=== PATIENT | male | born 1970 ===

== ENCOUNTER 2016-11-12 23:22 | Emergency (ER) | payer OTHER ==
[2016-11-12] MEDS ORDERED: LORazepam 2 MG/1 ML VIAL IVP ONE (23:28)
[2016-11-12] MEDS ORDERED: Sodium Chloride 0.9% 1,000 ML PRIMARY IV ONE (23:28)
[2016-11-12] MEDS ORDERED: ONDANSETRON 4 MG/2 ML VIAL IVP ONE (23:28)
[2016-11-12 23:32] LABS: BASOPHILS # (AUTO) 0.05 10*3/UL; BASOPHILS % (AUTO) 0.4 % (0-1); EOSINOPHILS % (AUTO) 0.2 % (0-8); HEMATOCRIT 47.7 % (42.0-52.0); HEMOGLOBIN 16.7 g/dL (14.0-18.0); IMM GRAN % (AUTO) 0.2 % (0-5); IMM GRAN# (AUTO) 0.03 10*3/UL; LYMPHOCYTES % (AUTO) 8.3 % (10-50); MEAN CORPUSCULAR HEMOGLOBIN 31.5 PG (27-31); MEAN PLATELET VOLUME 10.5 FL (7.4-12.2); MONOCYTES % (AUTO) 8.3 % (5-15); NEUTROPHILS # (AUTO) 9.98 10*3/UL; NEUTROPHILS % (AUTO) 82.6 % (50-80); PLATELET MORPHOLOGY COMMENT NORMAL MORPHOLOGY (NORM); RDW COEFFICIENT OF VARIATION 12.4 % (11.5-14.5); WHITE BLOOD COUNT 12.08 10^3/uL (4.8-10.8)
--- NOTE | 2016-11-12 23:35 | PDOC ---
Altered Mental Status HPI - General Chief Complaint: Altered Mental Status Stated Complaint: Mental Status Changes Date Seen by Provider: 11/12/16 Time Seen by Provider: 23:30 Source: POSITIVE: Patient, Police, EMS Exam Limitations: POSITIVE: No limitations Nurse's Notes Reviewed & Considered: Yes - History of Present Illness Initial Comments: Patient is brought in via EMS with altered status. Patient was found by the Police Department as he was walking down the middle of the street to the hospital because he was having chest pain and was afraid he was having a heart attack. Police arrived and called for EMS. They found the patient to be altered, very anxious, and confused. 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 Further information is unavailable because of the patient's confusion and altered mental status. Patient is very fearful, hypervigilant, and jumpy. Body Location Affected: REPORTS: Chest Timing: REPORTS: Abrupt Duration: Unknown Severity: Moderate Quality: REPORTS: "Pain" Character of AMS: REPORTS: Disoriented, Confused, Aggitated, Trouble Concentrating Context: REPORTS: Other (Patient with history of PTSD.) Patient Normals: REPORTS: Alert, Oriented x3 Associated Symptoms: REPORTS: Chest Pain Similar Symptoms Previously: No Recent Care Received: REPORTS: Denies Any Prior Injuries Related to Current Complaint?: No - Patient Home Medications Home Medications: Home Medications Metoprolol Tartrate 1 tab PO BID #180 tab 11/18/15 Sertraline HCl [Zoloft] 50 mg PO DAILY #90 tablet 11/18/15 Spironolactone [Aldactone] 1 tab PO DAILY #90 tab 11/18/15 Lorazepam 1 mg PO BID PRN #30 tablet 03/04/16 - Patient Allergies Allergies/Adverse Reactions: Allergies Allergy/AdvReac Type Severity Reaction Status Date / Time No Known Allergies Allergy Verified 11/13/16 03:18 Past Medical History - heen HEENT History: Denies History Cardiovascular History: Hypertension Additional Cardiovasular History: recent onset of HTN Respiratory History: Denies History Gastrointestinal History: Denies History Genitourinary History: Denies History Endocrine History: Denies History Musculoskeletal History: Denies History Prosthesis or Implant: No Neurological History: Denies History Additional Neurological History: recent onset of bouts of disorientation Blood Disorders: Denies History Psychiatric History: Depression, Anxiety Disorders History of Sexually Transmitted Diseases: No Cancer History: Denies History History of MDRO: No History of Other Communicable Diseases: No Alcohol Use: Occasionally Substance Use Type: None Previous Surgical History: Yes Type / Date of Surgery: vericocyle Anesthesia Reactions: No Malignant Hyperthermia: No Significant Family History: Other (please comment) Additional Family History: Father has Alzheimer's ROS - Limitations ROS Limitations: Clinical Condition, Mental Impairment (Further review of systems are unavailable because of the patient's altered mental status.) Altered Mental Physical Exam - General Appearance General Appearance: POSITIVE: Alert, Anxious, Moderate Distress - HEENT HEENT: POSITIVE: Head Inspection Nml, Eyes Inspection Nml, Ears Inspection Nml, Nose Inspection Nml, Oral/Dental Inspect. Nml, Pharynx Inspect. Nml, PERRL, EOMI - Pupil Size Pupil Size: 4 mm: Bilateral - Neuro/Psych Neurological: POSITIVE: Confusion Cranial Nerves: POSITIVE: Normal As Tested, No Evidence of Acute CVA Cerebellar: POSITIVE: Normal As Tested Peripheral Exam: POSITIVE: No Motor Deficits, No Sensory Deficits - Neck Neck: POSITIVE: Supple, Non Tender - Respiratory Respiratory: POSITIVE: No Respiratory Distress, Breath Sounds Normal - Cardiovascular CVS: POSITIVE: Regular Rate and Rhythm, Heart Sounds Normal - Abdomen Abdomen: Soft: (All Quadrants), Normal Bowel Sounds: (All Quadrants), Denies Tenderness: (All Quadrants) - Skin Skin: POSITIVE: Normal for Race, No Rash, Warm, Dry - Extremities Extremity: Non-Tender: (All Extremities), Normal ROM: (All Extremities), Normal Inspection: (All Extremities) Altered Mental Status - Results Reviewed By Me Xrays/CTs/US Reviewed: Yes Lab Results Reviewed: Yes Lab Results:: Laboratory Results 11/12/16 11/12/16 11/13/16 Range/Units 01:01 23:19 00:30 WBC 12.08 H (4.8-10.8) 10^3/uL RBC 5.30 (4.70-6.10) 10^6/uL Hgb 16.7 (14.0-18.0) g/dL Hct 47.7 (42.0-52.0) % MCV 90.0 (80-90) FL MCH 31.5 H (27-31) PG MCHC 35.0 (33-37) g/dL RDW Std Deviation 40.7 (39-50) fL RDW Coeff of Panfilo 12.4 (11.5-14.5) % Plt Count 317 (140-350) 10*3/uL MPV 10.5 (7.4-12.2) FL Immature Gran % (Auto) 0.2 (0-5) % Neut % (Auto) 82.6 H (50-80) % Lymph % (Auto) 8.3 L (10-50) % Stephenson % (Auto) 8.3 (5-15) % Eos % (Auto) 0.2 (0-8) % Baso % (Auto) 0.4 (0-1) % Immature Gran # (Auto) 0.03 10*3/UL Neut # (Auto) 9.98 10*3/UL Lymph # (Auto) 1.00 10*3/uL Stephenson # (Auto) 1.00 H (0.3-0.8) 10*3/UL Eos # (Auto) 0.02 10*3/UL Baso # (Auto) 0.05 10*3/UL WBC Morphology Comment Normal morphology (NORM) Plt Morphology Comment Normal morphology (NORM) RBC Morph Comment Normal morphology (NORM) Sodium 140 (135-145) meq/L Potassium 3.9 (3.8-5.2) meq/L Chloride 103 (98-112) meq/L Carbon Dioxide 21 L (23-33) meq/L Anion Gap 16 (5-20) BUN 14 (7-22) mg/dL Creatinine 0.9 (0.70-1.50) mg/dL Estimated GFR > 60 (>60 ml/min/1.73m(2)) BUN/Creatinine Ratio 15.55 (6-20) Glucose 106 (78-110) mg/dL Calculated Osmolality 290.0 (267-292) mOsm/kg Calcium 10.0 (8.7-10.7) mg/dL Magnesium 2.0 (1.6-2.4) mg/dL Total Bilirubin 0.9 (0.3-1.2) mg/dL AST 34 (21-57) IU/L ALT 55 (21-72) IU/L Alkaline Phosphatase 109 (38-126) IU/L Troponin I < 0.012 (< 0.040) ng/mL Total Protein 7.9 (6.1-8.0) g/dL Albumin 4.9 H (3.5-4.8) g/dL Globulin 3.0 (2.50-4.10) g/dL Albumin/Globulin Ratio 1.60 (1.3-2.0) mg/g TSH 1.58 (0.2700-4.2000) uIU/mL Free T4 2.12 H (0.93-1.71) ng/dL Ur Collection Type Clean catch urine Urine Color Yellow Urine Clarity Clear (CLEAR) Urine pH 5.5 (5.0-8.5) Ur Specific [place] >=1.030 (1.005-1.030) U Specif Grav (Refrac) 1.028 Urine Protein Trace (NEG) mg/dl Urine Glucose (UA) Negative (NEG) mg/dL Urine Ketones >=160 (NEG) Urine Occult Blood Negative (NEG) Urine Nitrate Negative (NEG) Urine Bilirubin Small (NEG) Urine Urobilinogen 0.2 (0.2) EU/dL Ur Leukocyte Esterase Negative (NEG) Ur Culture Indicated? Culture not set Urine Opiates Screen Negative (NEG) Ur Buprenorphine Negative (NEG) Ur Oxycodone Screen Negative (NEG) Urine Methadone Screen Negative (NEG) Ur Propoxyphene Screen Negative (NEG) Barbiturate Screen Negative (NEG) U Tricyclic Antidepress Negative (NEG) Phencyclidine Screen Negative (NEG) Amphetamines Screen Negative (NEG) U Methamphetamines Scrn Negative (NEG) Benzodiazepines Screen Negative (NEG) Cocaine Screen Negative (NEG) U Marijuana (THC) Screen Negative (NEG) Serum Alcohol < 10 (0-10) mg/dL 11/13/16 Range/Units 07:19 WBC (4.8-10.8) 10^3/uL RBC (4.70-6.10) 10^6/uL Hgb (14.0-18.0) g/dL Hct (42.0-52.0) % MCV (80-90) FL MCH (27-31) PG MCHC (33-37) g/dL RDW Std Deviation (39-50) fL RDW Coeff of Panfilo (11.5-14.5) % Plt Count (140-350) 10*3/uL MPV (7.4-12.2) FL Immature Gran % (Auto) (0-5) % Neut % (Auto) (50-80) % Lymph % (Auto) (10-50) % Stephenson % (Auto) (5-15) % Eos % (Auto) (0-8) % Baso % (Auto) (0-1) % Immature Gran # (Auto) 10*3/UL Neut # (Auto) 10*3/UL Lymph # (Auto) 10*3/uL Stephenson # (Auto) (0.3-0.8) 10*3/UL Eos # (Auto) 10*3/UL Baso # (Auto) 10*3/UL WBC Morphology Comment (NORM) Plt Morphology Comment (NORM) RBC Morph Comment (NORM) Sodium (135-145) meq/L Potassium (3.8-5.2) meq/L Chloride (98-112) meq/L Carbon Dioxide (23-33) meq/L Anion Gap (5-20) BUN (7-22) mg/dL Creatinine (0.70-1.50) mg/dL Estimated GFR (>60 ml/min/1.73m(2)) BUN/Creatinine Ratio (6-20) Glucose (78-110) mg/dL Calculated Osmolality (267-292) mOsm/kg Calcium (8.7-10.7) mg/dL Magnesium (1.6-2.4) mg/dL Total Bilirubin (0.3-1.2) mg/dL AST (21-57) IU/L ALT (21-72) IU/L Alkaline Phosphatase (38-126) IU/L Troponin I < 0.012 (< 0.040) ng/mL Total Protein (6.1-8.0) g/dL Albumin (3.5-4.8) g/dL Globulin (2.50-4.10) g/dL Albumin/Globulin Ratio (1.3-2.0) mg/g TSH (0.2700-4.2000) uIU/mL Free T4 (0.93-1.71) ng/dL Ur Collection Type Urine Color Urine Clarity (CLEAR) Urine pH (5.0-8.5) Ur Specific [place] (1.005-1.030) U Specif Grav (Refrac) Urine Protein (NEG) mg/dl Urine Glucose (UA) (NEG) mg/dL Urine Ketones (NEG) Urine Occult Blood (NEG) Urine Nitrate (NEG) Urine Bilirubin (NEG) Urine Urobilinogen (0.2) EU/dL Ur Leukocyte Esterase (NEG) Ur Culture Indicated? Urine Opiates Screen (NEG) Ur Buprenorphine (NEG) Ur Oxycodone Screen (NEG) Urine Methadone Screen (NEG) Ur Propoxyphene Screen (NEG) Barbiturate Screen (NEG) U Tricyclic Antidepress (NEG) Phencyclidine Screen (NEG) Amphetamines Screen (NEG) U Methamphetamines Scrn (NEG) Benzodiazepines Screen (NEG) Cocaine Screen (NEG) U Marijuana (THC) Screen (NEG) Serum Alcohol (0-10) mg/dL EKG Interpreted/Reviewed By Me:: Yes EKG Interpretation:: POSITIVE: Normal Sinus Rhythm - Patient's Progress Pain Medication Addressed: POSITIVE: Not Applicable Re-Examine Time:: 03:11 Status: POSITIVE: Improved MDM / ED Course: Patient was examined, an IV started, blood drawn and sent to the lab for studies , radiographic studies were obtained. [employer] was treated in did present and has evaluated the patient. Findings: CBC shows a slight elevation of his white count to just over 12, hemoglobin and hematocrit platelets are normal, compensated metabolic panel is unremarkable. Magnesium is normal. TSH is normal, free T4 is elevated over 2. Urine drug screen is negative for all substances tested. Alcohol is undetectable. CT scan of his head shows a 5 x 6 mm hypodensity in the central brainstem most likely artifactual as there is significant adjacent being hardening artifact. Assessment: PTSD with superimposed anxiety. Plan: Further evaluation by [facility]. Prior to transfer to [facility], they have requested his diastolic blood pressure be under 90. He has received oral clonidine, IV labetalol, and IV Ativan. The end of my shift has occurred, I am turning over care to [facility] ER physician Dr. Bird while awaiting improvement of the patient's blood pressure and transfer to [facility]. Patient Care Time - Estimated PCT Patient Care Time (In Minutes): 60 Vital Signs - Recent Vital Signs Vital Signs: Vital Signs (Last 8 hours) Pulse Resp BP Pulse Ox 11/13/16 03:00 103 H 16 158/114 95 - VS Reviewed Vital Signs Reviewed: Yes Discharge Clinical Impression: Anxiety, PTSD (post-traumatic stress disorder) Discharge Disposition: Transferred to Psychiatric Facility Condition: Stable Follow Up With: NONE,NONE [NON-STAFF] - Date Decision to Transfer to Another Facility: 11/13/16 Time Decision to Transfer to Another Facility: 07:30
--- NOTE | 2016-11-12 23:36 | EKG ---
[address] [address] Measurements Intervals [place] Rate: 113 P: 62 KS: 144 QRS: 76 QRSD: 82 T: 38 QT: 312 QTc: 379 Interpretive Statements SINUS TACHYCARDIA VOLTAGE CRITERIA FOR LVH ABNORMAL RHYTHM ECG Compared to ECG 09/24/2015 10:31:59 Sinus rhythm no longer present Electronically Signed On 11-13-16 17:27:33 MDT by Dmitry Carpenter [email or web address]
[2016-11-12 23:42] LABS: ASPARTATE AMINO TRANSFERASE 34 IU/L (21-57); BILIRUBIN,TOTAL 0.9 mg/dL (0.3-1.2); BLOOD UREA NITROGEN 14 mg/dL (7-22); BUN/CREATININE RATIO 15.55 (6-20); CHLORIDE 103 meq/L (98-112); CREATININE 0.9 mg/dL (0.70-1.50); EST GLOMERULAR FILTRATION > 60 (>60 ml/min/1.73m(2)); GLUCOSE 106 mg/dL (78-110); POTASSIUM 3.9 meq/L (3.8-5.2); SODIUM 140 meq/L (135-145); TOTAL PROTEIN 7.9 g/dL (6.1-8.0)
[2016-11-13 00:13] LABS: FREE T4 (FREE THYROXINE) 2.12 ng/dL (0.93-1.71)
[2016-11-13 00:30] LABS: BILIRUBIN,URINE SMALL (NEG); CLARITY,URINE CLEAR (CLEAR); GLUCOSE, URINE (UA) NEGATIVE (NEG); LEUKOCYTE ESTERASE ,URINE NEGATIVE (NEG); NITRATE,URINE NEGATIVE (NEG); OCCULT BLOOD,URINE NEGATIVE (NEG); PH,URINE 5.5 (5.0-8.5); PROTEIN,URINE TRACE mg/dl (NEG); UROBILINOGEN,URINE 0.2 EU/dL (0.2)
[2016-11-13 00:47] LABS: CANNABINOID SCREEN,URINE NEGATIVE (NEG); COCAINE SCREEN NEGATIVE (NEG); METHAMPHETAMINES SCREEN,URINE NEGATIVE (NEG); URINE SAMPLE TYPE CLEAN CATCH URINE; URINE SPECIFIC GRAVITY - MAN 1.028
--- NOTE | 2016-11-13 01:48 | DI ---
HISTORY: Altered mental status. Patient seems very lethargic. COMPARISON: None available. TECHNIQUE: Non-contrast CT brain. Overall image quality is satisfactory. FINDINGS: EXTRACRANIAL SOFT TISSUES- No significant soft tissue injury identified. BONE - Calvarium: No depressed skull fracture. Temporal mastoids: No effusion. Included paranasal sinuses: Well aerated, noting maxillary sinus mucosal thickening. Orbits: No acute abnormality. CSF SPACES - Ventricles: Normal. Subarachnoid spaces: Normal. BRAIN - A 5 x 6 mm hypodensity is noted at the central brain stem. This finding may be artifactual as there is significant adjacent beam hardening artifact from the temporal bones in this location (axial image 7). If patients symptoms persist, recommend dedicated MRI for further evaluation. Punctate right basal ganglia hypodensity, nonspecific finding. No additional abnormal parenchymal at tenuation. No acute intracranial bleed, large vessel territory infarct or midline shift. IMPRESSION: 1. Evidence of a 5 x 6 mm hypodensity noted at the central brain stem. This finding may be artifactua l as there is significant adjacent beam hardening artifact from the temporal bones in this location ( axial image 7). If patients symptoms persist, recommend dedicated MRI for further evaluation. 2. No acute intracranial bleed, large vessel territory infarct or midline shift. NOTIFICATION: The above findings were phoned to Arnold Larsen in the ER Department on 11/13/2016 at 04: 50 AM EST.
[2016-11-13 03:16] VITALS: TEMP 98.2
[2016-11-13 03:28] VITALS: RESP 16
[2016-11-13] MEDS ORDERED: CloNIDine Tab 0.1 MG TABLET PO ONE ×2 (07:09→07:46)
[2016-11-13] MEDS ORDERED: LABETALOL 20 MG/4 ML (5 MG/1 ML) SYRINGE IVP ONE (08:27)
[2016-11-13] MEDS ORDERED: LORazepam 2 MG/1 ML VIAL IVP ONE (09:08)
[2016-11-13] MEDS ORDERED: NORMAL SALINE 10 ML SYRINGE FLUSH IVP PRN (09:16)
--- NOTE | 2016-11-13 13:10 | PDOC ---
Altered Mental Status HPI - General Chief Complaint: Altered Mental Status Stated Complaint: Mental Status Changes Date Seen by Provider: 11/13/16 Time Seen by Provider: 09:00 Source: POSITIVE: Patient, RN/MD Exam Limitations: POSITIVE: No limitations Nurse's Notes Reviewed & Considered: Yes - History of Present Illness Initial Comments: The patient is a 46-year-old male who was brought to our emergency room by police officers and EMS at approximately midnight, 13 hours ago. A she was initially seen and evaluated by Dr. Cuellar, who was the emergency physician on duty at that time area and I assumed care of this patient at change of shift at 9 AM. Patient was reportedly noted by police officers to be walking down the middle of the street. He was very agitated, fearful and paranoid. He complained to the police that he was having some chest pain so the police called paramedics and is brought to the emergency room by ambulance. Dr. Cuellar , prior to 9 AM, did a CT scan of the head which was normal except for a hypolucent lesion in the brainstem, which, according to the radiologist, probably represents an artifact. CBC, CMP, toxicology screen blood alcohol and thyroid stimulating hormone were all normal. Electrocardiogram is normal and troponin was normal. [facility]anna consultation was requested who placed the patient on a 72 hour hold for mental health evaluation. Patient has been under a great deal of stress lately. 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 Patient states that his long-time girlfriend left him recently and as a result his home went [facility]. He states that he is about to lose his job at the [employer] due to "behavior issues" . Patient was observed in the emergency room and repeat troponin was negative. His chest pain resolved shortly after arrival to the emergency room. The counselor from [employer] has place the patient on a 72 hour hold. She contacted [facility], and they declined to accept the patient because the patient's blood pressure, diastolic, was 99. Dr. Cuellar administered some anti-hypertensives and at the time of this dictation his blood pressure is 124/72. Next the [facility] declined to accept the patient because of the reading on the CT scan of a hypodense lesion in the brainstem, which is probably an artifact. These films were telemetered to [facility] where the psychiatrist reviewd them and finally agreed to accept the patient in transfer. At the time of this dictation patient is completely medically stable. He is alert and oriented and asymptomatic. I believe the patient had a decompensation of his PTSD due to situational stressors which caused him to have extreme anxiety and paranoia. Again, he is medically stable. Body Location Affected: REPORTS: Other Timing: REPORTS: Gradual (As above) Duration: <24 hours Severity: Moderate Quality: REPORTS: Other (Patient initially complained of some chest pain; he checked out cardiologically and is asymptomatic at this time) Character of AMS: REPORTS: Confused, Other (Paranoid, agitated on arrival. This is resolved subsequently.) Context: DENIES: Snf Resident, Chronic Dementia, Depression, Found Unrespons by Staff, Found Unresp by Bystander, Found Unrespons by Family, Recent Alcohol Intake, Heavy Alcohol Intake, Drug Abuse, Drug Overdose, Trauma, Head Injury, Infection, Family Members Sick, Given D50 WEBSITE PROJECT MANAGER, Given Narcan WEBSITE PROJECT MANAGER, Good Response to Tx WEBSITE PROJECT MANAGER, Marginal Respon to Tx WEBSITE PROJECT MANAGER, No Response to Tx WEBSITE PROJECT MANAGER, Other FSBS WEBSITE PROJECT MANAGER (Result in comment): Yes (normal) New Medications (if yes, list): No Patient Normals: REPORTS: Alert, Oriented x3 Associated Symptoms: DENIES: Recent Illness, Fever, Chills, Chest Pain, Neck Pain, Back Pain, Difficulty Breathing, Abdominal Pain, Nausea, Vomiting, New Onset Weakness, Decreas. Ability to Stand, Decreased Ability to Walk, Multiple Falls, Off Balance, Fainting, Dizziness, Involuntary Movements, Seizure, Headache, Other Similar Symptoms Previously: Yes (history of agitation and PTSD) Recent Care Received: REPORTS: Denies Any Prior Injuries Related to Current Complaint?: No - Patient Home Medications Home Medications: Home Medications Metoprolol Tartrate 1 tab PO BID #180 tab 11/18/15 Sertraline HCl [Zoloft] 50 mg PO DAILY #90 tablet 11/18/15 Spironolactone [Aldactone] 1 tab PO DAILY #90 tab 11/18/15 Lorazepam 1 mg PO BID PRN #30 tablet 07/01/16 - Patient Allergies Allergies/Adverse Reactions: Allergies Allergy/AdvReac Type Severity Reaction Status Date / Time No Known Allergies Allergy Verified 11/13/16 03:18 Past Medical History - heen HEENT History: Denies History Cardiovascular History: Hypertension Additional Cardiovasular History: recent onset of HTN Respiratory History: Denies History Gastrointestinal History: Denies History Genitourinary History: Denies History Endocrine History: Denies History Musculoskeletal History: Denies History Prosthesis or Implant: No Neurological History: Denies History Additional Neurological History: recent onset of bouts of disorientation Blood Disorders: Denies History Psychiatric History: Depression, Anxiety Disorders History of Sexually Transmitted Diseases: No Cancer History: Denies History In Past Year Been Physically Harmed or Verbally Threatened: No History of MDRO: No History of Other Communicable Diseases: No Tobacco Use: Never Smoker Alcohol Use: Occasionally Substance Use Type: None Previous Surgical History: Yes Type / Date of Surgery: vericocyle Anesthesia Reactions: No Malignant Hyperthermia: No Significant Family History: Other (please comment) Additional Family History: Father has Alzheimer's Past Medical History Reviewed: Reviewed - No Changes ROS - Limitations ROS Limitations: No Limitations Constitution: REPORTS: Denies Symptoms Cardiovascular: REPORTS: Denies Cardiac Symptoms Respiratory: REPORTS: Denies Resp Symptoms Neurological: REPORTS: Denies Neuro Symptoms Gastrointestinal: REPORTS: Denies GI Symptoms Endocrine: REPORTS: Denies Symptoms Musculoskeletal: REPORTS: Denies MS Symptoms Genitourinary: REPORTS: Denies Symptoms Eyes: REPORTS: Denies Symptoms ENT: REPORTS: Denies Symptoms Skin: REPORTS: Denies Skin Symptoms Lympathic: REPORTS: Denies Lympathic Symptoms Immunologic: POSITIVE: Denies Symptoms Psychiatric: POSITIVE: Anxiety, Depression. NEGATIVE: Suicidal Thoughts, Homicidal Thoughts Altered Mental Physical Exam - General Appearance General Appearance: POSITIVE: Alert, Cooperative, No Acute Distress, No Evidence of Trauma - HEENT HEENT: POSITIVE: Head Inspection Nml, Eyes Inspection Nml, Ears Inspection Nml, Nose Inspection Nml, Oral/Dental Inspect. Nml, Pharynx Inspect. Nml, PERRL, EOMI - Pupil Size Pupil Size: 4 mm: Bilateral (PERRLA) - Neuro/Psych Neurological: POSITIVE: Denies Neuro Symptoms Cranial Nerves: POSITIVE: Normal As Tested, No Evidence of Acute CVA Peripheral Exam: POSITIVE: No Motor Deficits, No Sensory Deficits, Reflexes Normal - Neck Neck: POSITIVE: Supple, Non Tender - Respiratory Respiratory: POSITIVE: No Respiratory Distress, Breath Sounds Normal - Cardiovascular CVS: POSITIVE: Regular Rate and Rhythm, Heart Sounds Normal Peripheral Pulses: Radial (R): 2+, Radial (L): 2+ - Abdomen Abdomen: Soft: (All Quadrants), Normal Bowel Sounds: (All Quadrants), Denies Tenderness: (All Quadrants), No Splenomegaly: (All Quadrants), No Hepatomegaly: (All Quadrants), No Guarding: (All Quadrants), No Rebound: (All Quadrants), No Palpable Pulse: (All Quadrants), No Palpabale Mass: (All Quadrants), No Distention: (All Quadrants), No Rigidity: (All Quadrants) - Skin Skin: POSITIVE: Normal for Race, No Rash, Warm, Dry - Extremities Extremity: Non-Tender: (All Extremities), Normal ROM: (All Extremities), Normal Inspection: (All Extremities) Altered Mental Status - Results Reviewed By Me Xrays/CTs/US Reviewed: Yes Discussed with Radiologist: Yes (CT scan normal except for a small hypolucency in the brainstem thought to be most likely artifactual) Lab Results Reviewed: Yes Lab Results:: Laboratory Results 11/12/16 11/12/16 11/13/16 Range/Units 01:01 23:19 00:30 WBC 12.08 H (4.8-10.8) 10^3/uL RBC 5.30 (4.70-6.10) 10^6/uL Hgb 16.7 (14.0-18.0) g/dL Hct 47.7 (42.0-52.0) % MCV 90.0 (80-90) FL MCH 31.5 H (27-31) PG MCHC 35.0 (33-37) g/dL RDW Std Deviation 40.7 (39-50) fL RDW Coeff of Panfilo 12.4 (11.5-14.5) % Plt Count 317 (140-350) 10*3/uL MPV 10.5 (7.4-12.2) FL Immature Gran % (Auto) 0.2 (0-5) % Neut % (Auto) 82.6 H (50-80) % Lymph % (Auto) 8.3 L (10-50) % Anson % (Auto) 8.3 (5-15) % Eos % (Auto) 0.2 (0-8) % Baso % (Auto) 0.4 (0-1) % Immature Gran # (Auto) 0.03 10*3/UL Neut # (Auto) 9.98 10*3/UL Lymph # (Auto) 1.00 10*3/uL Anson # (Auto) 1.00 H (0.3-0.8) 10*3/UL Eos # (Auto) 0.02 10*3/UL Baso # (Auto) 0.05 10*3/UL WBC Morphology Comment Normal morphology (NORM) Plt Morphology Comment Normal morphology (NORM) RBC Morph Comment Normal morphology (NORM) Sodium 140 (135-145) meq/L Potassium 3.9 (3.8-5.2) meq/L Chloride 103 (98-112) meq/L Carbon Dioxide 21 L (23-33) meq/L Anion Gap 16 (5-20) BUN 14 (7-22) mg/dL Creatinine 0.9 (0.70-1.50) mg/dL Estimated GFR > 60 (>60 ml/min/1.73m(2)) BUN/Creatinine Ratio 15.55 (6-20) Glucose 106 (78-110) mg/dL Calculated Osmolality 290.0 (267-292) mOsm/kg Calcium 10.0 (8.7-10.7) mg/dL Magnesium 2.0 (1.6-2.4) mg/dL Total Bilirubin 0.9 (0.3-1.2) mg/dL AST 34 (21-57) IU/L ALT 55 (21-72) IU/L Alkaline Phosphatase 109 (38-126) IU/L Troponin I < 0.012 (< 0.040) ng/mL Total Protein 7.9 (6.1-8.0) g/dL Albumin 4.9 H (3.5-4.8) g/dL Globulin 3.0 (2.50-4.10) g/dL Albumin/Globulin Ratio 1.60 (1.3-2.0) mg/g TSH 1.58 (0.2700-4.2000) uIU/mL Free T4 2.12 H (0.93-1.71) ng/dL Ur Collection Type Clean catch urine Urine Color Yellow Urine Clarity Clear (CLEAR) Urine pH 5.5 (5.0-8.5) Ur Specific Eck[place] >=1.030 (1.005-1.030) U Specif Grav (Refrac) 1.028 Urine Protein Trace (NEG) mg/dl Urine Glucose (UA) Negative (NEG) mg/dL Urine Ketones >=160 (NEG) Urine Occult Blood Negative (NEG) Urine Nitrate Negative (NEG) Urine Bilirubin Small (NEG) Urine Urobilinogen 0.2 (0.2) EU/dL Ur Leukocyte Esterase Negative (NEG) Ur Culture Indicated? Culture not set Urine Opiates Screen Negative (NEG) Ur Buprenorphine Negative (NEG) Ur Oxycodone Screen Negative (NEG) Urine Methadone Screen Negative (NEG) Ur Propoxyphene Screen Negative (NEG) Barbiturate Screen Negative (NEG) U Tricyclic Antidepress Negative (NEG) Phencyclidine Screen Negative (NEG) Amphetamines Screen Negative (NEG) U Methamphetamines Scrn Negative (NEG) Benzodiazepines Screen Negative (NEG) Cocaine Screen Negative (NEG) U Marijuana (THC) Screen Negative (NEG) Serum Alcohol < 10 (0-10) mg/dL 11/13/16 Range/Units 07:19 WBC (4.8-10.8) 10^3/uL RBC (4.70-6.10) 10^6/uL Hgb (14.0-18.0) g/dL Hct (42.0-52.0) % MCV (80-90) FL MCH (27-31) PG MCHC (33-37) g/dL RDW Std Deviation (39-50) fL RDW Coeff of Panfilo (11.5-14.5) % Plt Count (140-350) 10*3/uL MPV (7.4-12.2) FL Immature Gran % (Auto) (0-5) % Neut % (Auto) (50-80) % Lymph % (Auto) (10-50) % Anson % (Auto) (5-15) % Eos % (Auto) (0-8) % Baso % (Auto) (0-1) % Immature Gran # (Auto) 10*3/UL Neut # (Auto) 10*3/UL Lymph # (Auto) 10*3/uL Anson # (Auto) (0.3-0.8) 10*3/UL Eos # (Auto) 10*3/UL Baso # (Auto) 10*3/UL WBC Morphology Comment (NORM) Plt Morphology Comment (NORM) RBC Morph Comment (NORM) Sodium (135-145) meq/L Potassium (3.8-5.2) meq/L Chloride (98-112) meq/L Carbon Dioxide (23-33) meq/L Anion Gap (5-20) BUN (7-22) mg/dL Creatinine (0.70-1.50) mg/dL Estimated GFR (>60 ml/min/1.73m(2)) BUN/Creatinine Ratio (6-20) Glucose (78-110) mg/dL Calculated Osmolality (267-292) mOsm/kg Calcium (8.7-10.7) mg/dL Magnesium (1.6-2.4) mg/dL Total Bilirubin (0.3-1.2) mg/dL AST (21-57) IU/L ALT (21-72) IU/L Alkaline Phosphatase (38-126) IU/L Troponin I < 0.012 (< 0.040) ng/mL Total Protein (6.1-8.0) g/dL Albumin (3.5-4.8) g/dL Globulin (2.50-4.10) g/dL Albumin/Globulin Ratio (1.3-2.0) mg/g TSH (0.2700-4.2000) uIU/mL Free T4 (0.93-1.71) ng/dL Ur Collection Type Urine Color Urine Clarity (CLEAR) Urine pH (5.0-8.5) Ur Specific Eckerman (1.005-1.030) U Specif Grav (Refrac) Urine Protein (NEG) mg/dl Urine Glucose (UA) (NEG) mg/dL Urine Ketones (NEG) Urine Occult Blood (NEG) Urine Nitrate (NEG) Urine Bilirubin (NEG) Urine Urobilinogen (0.2) EU/dL Ur Leukocyte Esterase (NEG) Ur Culture Indicated? Urine Opiates Screen (NEG) Ur Buprenorphine (NEG) Ur Oxycodone Screen (NEG) Urine Methadone Screen (NEG) Ur Propoxyphene Screen (NEG) Barbiturate Screen (NEG) U Tricyclic Antidepress (NEG) Phencyclidine Screen (NEG) Amphetamines Screen (NEG) U Methamphetamines Scrn (NEG) Benzodiazepines Screen (NEG) Cocaine Screen (NEG) U Marijuana (THC) Screen (NEG) Serum Alcohol (0-10) mg/dL EKG Interpreted/Reviewed By Me:: Yes (sinus tachycardia otherwise normal) EKG Interpretation:: POSITIVE: Normal Sinus Rhythm, Normal Intervals, Normal [place], Normal QRS, Normal ST/T. NEGATIVE: Normal Rate (Mild sinus tachycardia) - Patient's Progress Pain Medication Addressed: POSITIVE: No School/Work Release Addressed: POSITIVE: Not Applicable Re-Examine Time:: 13:00 Status: POSITIVE: Improved, Re-Examined Antibiotics Given: No - Consult Consult (If Yes, Name of Consulting MD & Time Called): Yes ([facility]; [facility]) Consulting MD will see pt:: POSITIVE: Recommended Transfer Counseled: POSITIVE: Patient, RE: Lab Results, RE: Radiology Results, RE: DX, RE : Need for F/U Patient Care Time - Estimated PCT Patient Care Time (In Minutes): 50 Vital Signs - VS Reviewed Vital Signs Reviewed: Yes Discharge Clinical Impression: Anxiety, PTSD (post-traumatic stress disorder) Discharge Disposition: Transferred to Psychiatric Facility ([facility]) Condition: Stable Follow Up With: NONE,NONE [NON-STAFF] - Date Decision to Transfer to Another Facility: 11/13/16 Time Decision to Transfer to Another Facility: 12:30
== END 2016-11-13 13:25 ==
LOC: ER 23:22
DX: F41.9 Anxiety disorder, unspecified (principal); F43.10 Post-traumatic stress disorder, unspecified
CPT/HCPCS: 36415; 70450; 80053; 80305; 80320; 81003; 83735; 84439; 84443; 84484; 85025; 90791; 93005; 93010; 96374; 96375; 99285; J2060; J7030

== ENCOUNTER → 2016-12-12 | Outpatient (CLI) | payer OTHER ==
[2016-12-12 09:22] LABS: BASOPHILS # (AUTO) 0.03 10*3/UL; BASOPHILS % (AUTO) 0.4 % (0-1); EOSINOPHILS % (AUTO) 1.4 % (0-8); HEMATOCRIT 45.9 % (42.0-52.0); LYMPHOCYTES # (AUTO) 0.66 10*3/uL; MEAN CORPUSCULAR HEMOGLOBIN 31.4 PG (27-31); MEAN CORPUSCULAR HGB CONC 34.9 g/dL (33-37); MEAN CORPUSCULAR VOLUME 90.2 FL (80-90); MEAN PLATELET VOLUME 10.1 FL (7.4-12.2); MONOCYTES # (AUTO) 0.64 10*3/UL (0.3-0.8); MONOCYTES % (AUTO) 9.1 % (5-15); NEUTROPHILS # (AUTO) 5.61 10*3/UL; NEUTROPHILS % (AUTO) 79.6 % (50-80); RED BLOOD COUNT 5.09 10^6/uL (4.70-6.10)
[2016-12-12 09:27] LABS: PLATELET MORPHOLOGY COMMENT NORMAL MORPHOLOGY (NORM); RBC MORPHOLOGY COMMENT NORMAL MORPHOLOGY (NORM); WBC MORPHOLOGY COMMENT NORMAL MORPHOLOGY (NORM)
[2016-12-12 09:38] LABS: BLOOD UREA NITROGEN 18 mg/dL (7-22); BUN/CREATININE RATIO 16.36 (6-20); CALCIUM 9.6 mg/dL (8.7-10.7); CHOL/HDL RATIO 3.48 RATIO (0-4.0); EST GLOMERULAR FILTRATION > 60 (>60 ml/min/1.73m(2)); HDL CHOLESTEROL 45 mg/dL (40-150); SERUM ALBUMIN 4.2 g/dL (3.5-4.8); SERUM CHOLESTEROL 157 mg/dL (120-200)
[2016-12-12 09:39] LABS: HEMOGLOBIN A1C 5.48 % (4.2-6.0)
[2016-12-12 10:12] LABS: FREE T4 (FREE THYROXINE) 1.25 ng/dL (0.93-1.71)
== END ==
LOC: LAB 09:04
PROVIDERS: ATTEND Family Medicine
DX: R93.0 Abnormal findings on diagnostic imaging of skull and head, not elsewhere classified (principal); I10 Essential (primary) hypertension; F17.220 Nicotine dependence, chewing tobacco, uncomplicated; Z83.3 Family history of diabetes mellitus
CPT/HCPCS: 36415; 80053; 80061; 82306; 82607; 83036; 83735; 84403; 84439; 84443; 85025